=== PATIENT | female | born 1930 | race Caucasian/White ===

== ENCOUNTER 2016-03-23 01:27 | Inpatient (IN) | payer BC, MEDICARE, OTHER ==
[2016-03-23] VITALS (9 sets, daily range): BP systolic 103–135; RESP 18–20; TEMP 97.4–98.2; Ht 160 cm; Wt 47.2 kg
[~2016-03-23] VITALS: Ht 160 cm; Wt 47.2 kg
[2016-03-23] MEDS ORDERED: SODIUM CHLORIDE 0.9% 1,000 ML ONE (02:35)
[2016-03-23] MEDS ORDERED: CEFTRIAXONE 1 GM VIAL ONE (02:53)
[2016-03-23] MEDS ORDERED: AZITHROMYCIN 500 MG VIAL IV ONE (02:53)
[2016-03-23] MEDS ORDERED: SODIUM CHLORIDE 0.9% 250 ML IV ONE (02:54)
[2016-03-23] MEDS ORDERED: SODIUM CHLORIDE 0.9% 100 ML IV ONE (02:54)
[2016-03-23] MEDS ORDERED: SALINE FLUSH 10 ML FLUSH PRN (03:10)
[2016-03-23] MEDS ORDERED: SODIUM CHLORIDE 0.9% 1,000 ML IV SCH (03:55)
[2016-03-23] MEDS: DUONEB INH SCH ×4 (05:29→23:37)
[2016-03-23] MEDS: SODIUM CHLORIDE 0.9% FLUSH BAG 500 ML IV SCH (05:51)
[2016-03-23] MEDS ORDERED: NEB-ATROVENT INH SCH (07:00)
[2016-03-23] MEDS: MORPHINE 2 MG/ML SYR IV PRN ×2 (07:25→12:56)
[2016-03-23] MEDS: SALINE FLUSH 10 ML FLUSH SCH ×2 (07:55→20:22)
[2016-03-23] MEDS: ENOXAPARIN 40 MG/0.4 ML SYR SUBQ SCH (08:07)
[2016-03-23] MEDS ORDERED: AZITHROMYCIN 500 MG in SODIUM CHLORIDE 0.9% 250 ML IV SCH (09:00)
[2016-03-23] MEDS ORDERED: CEFTRIAXONE 1 GM in SODIUM CHLORIDE 0.9% 50 ML IV SCH (09:00)
[2016-03-23] MEDS: LORAZEPAM 0.5 MG TAB PO SCH ×2 (11:24→20:22)
[2016-03-23] MEDS: PANTOPRAZOLE 40 MG TAB PO SCH (12:55)
[2016-03-23] MEDS: ACETAMINOPHEN 325 MG TAB PO PRN ×2 (16:39→20:24)
[2016-03-23] MEDS: NICOTINE 14 MG/24 HR TDSY TRANSDERM SCH (20:24)
[2016-03-23] MEDS ORDERED: AMITRIPTYLINE 25 MG TAB PO SCH (21:00)
[2016-03-23] MEDS ORDERED: Atorvastatin 10 MG TAB PO SCH (21:00)
[2016-03-24] MEDS: MORPHINE 2 MG/ML SYR IV PRN ×2 (00:39→06:48)
[2016-03-24 04:01] VITALS: BP_SYST 114; RESP 18; TEMP 98.5
[2016-03-24] MEDS: DUONEB INH SCH ×2 (06:31→11:53)
[2016-03-24] MEDS: PANTOPRAZOLE 40 MG TAB PO SCH (06:42)
[2016-03-24] MEDS: SODIUM CHLORIDE 0.9% FLUSH BAG 500 ML IV SCH (06:48)
[2016-03-24 07:40] VITALS: BP_SYST 132; TEMP 98.2
[2016-03-24 07:41] VITALS: RESP 20
[2016-03-24] MEDS: LORAZEPAM 0.5 MG TAB PO SCH (08:17)
[2016-03-24] MEDS: NICOTINE 14 MG/24 HR TDSY TRANSDERM SCH (08:18)
[2016-03-24] MEDS: SALINE FLUSH 10 ML FLUSH SCH (08:31)
[2016-03-24] MEDS: ENOXAPARIN 40 MG/0.4 ML SYR SUBQ SCH (08:43)
[2016-03-24] MEDS ORDERED: AZITHROMYCIN 500 MG in SODIUM CHLORIDE 0.9% 250 ML IV SCH (09:00)
[2016-03-24] MEDS ORDERED: CEFTRIAXONE 1 GM in SODIUM CHLORIDE 0.9% 50 ML IV SCH (09:00)
[2016-03-24 11:50] VITALS: BP_SYST 107; TEMP 98.4
[2016-03-24 11:51] VITALS: RESP 20
[2016-03-24] MEDS ORDERED: PREDNISONE 20 MG TAB PO SCH (12:45)
[2016-03-24 13:18] VITALS: BP_SYST 107; RESP 20; TEMP 98.4
== END 2016-03-24 16:10 | disposition home or self-care (01) | DRG 190 ==
LOC: ENRESERVTM → ENRESERVDT → ENRESERV → ER 01:27 → ENPENDDIS 03:10 → EMR 03:10 → PCU2 04:08
PROVIDERS: ADMIT Internal Medicine; ATTEND Internal Medicine
DX: J44.0 Chronic obstructive pulmonary disease with (acute) lower respiratory infection (principal); J18.9 Pneumonia, unspecified organism; I95.9 Hypotension, unspecified; R09.1 Pleurisy; J44.1 Chronic obstructive pulmonary disease with (acute) exacerbation; Z72.0 Tobacco use; I10 Essential (primary) hypertension; Z85.3 Personal history of malignant neoplasm of breast; Z90.10 Acquired absence of unspecified breast and nipple
CPT/HCPCS: 36415; 71010; 80048; 80053; 81003; 82550; 82553; 83605; 83735; 84145; 84484; 85025; 85610; 85730; 86738; 87040; 87071; 87278; 87299; 93005; 94640; 94799; 96361; 96365; 96375; 99233